=== PATIENT | female | born 1985 | race American Indian/Alaskan Native ===

== ENCOUNTER 2016-09-08 22:51 | Emergency (ER) | payer SELFPAY ==
[2016-09-09 00:08] LABS: Basophils % (Auto) 0.4 % (0.0-1.8); Eosinophils % (Auto) 2.7 % (0.0-4.3); Hematocrit 38.3 % (30.3-42.9); Hemoglobin 12.3 gm/dl (10.1-14.3); Mean Corpuscular HGB Conc 32 % (30-34); Mean Corpuscular Hemoglobin 28 pg (28-32); Mean Corpuscular Volume 88 fl (79-97); Platelet Count 244 K/mm3 (140-440); Red Blood Count 4.38 M/mm3 (3.65-5.03); Red Cell Distribution Width 14.3 % (13.2-15.2); White Blood Count 9.2 K/mm3 (4.5-11.0)
[2016-09-09 00:36] LABS: Anion Gap 20 mmol/L; Blood Urea Nitrogen 14 mg/dL (7-17); Calcium 9.4 mg/dL (8.4-10.2); Carbon Dioxide 24 mmol/L (22-30); Chloride 102.1 mmol/L (98-107); Glucose 101 mg/dL (65-100); Potassium 3.9 mmol/L (3.6-5.0); Sodium 142 mmol/L (137-145)
[2016-09-09 02:56] LABS: Bilirubin,Urine NEG (Negative); Blood,Urine NEG (Negative); Ketones,Urine NEG (Negative); Leukocyte Esterase,Urine NEG (Negative); Mucus,Urine FEW /HPF; Nitrite,Urine NEG (Negative); Protein,Urine <15 mg/dL mg/dL (Negative)
--- NOTE | 2016-09-09 04:07 | Emergency Department Report ---
HPI - General Chief Complaint: Chest Pain Time Seen by Provider: 09/09/16 02:11 - HPI HPI: This is a 31-year-old Afro[place] female who presents to the emergency department from her sister's home, dropped off by her sister, with the complaint of some atypical headache or head sensation as well as some chest discomfort. The patient had some sudden pressure in her head about 1 hour prior to presentation that was mostly on the top and left side that felt like it was "lifting my head up." Then she started having a burning sensation and some numbness in this area as well. She had her sister passenger coach driver in to be seen and while they were driving in the patient developed some midsternal chest discomfort. She said that she was having a lot of gas and burping and after she was able to get rid of the gas chest discomfort went away. The patient's head pressure/sensation also resolved prior to me seeing the patient in the emergency department. She did not take anything for her symptoms prior to presentation. She has a past medical history of acid reflux. She is currently from [facility] and therefore has a primary care physician there. She had one previous episode of this atypical head pressure/sensation and it occurred last and it resolved on its own. She is also had previous episodes of some chest discomfort and it was either acid reflux or anxiety when it occurred. ED Past Medical Hx - Past Medical History Previous Medical History?: No - Social History Smoking Status: Former Smoker - Medications Home Medications: Home Medications Medication Instructions Recorded Confirmed Last Taken Type No Known Home Medications [No 09/09/16 09/09/16 Unknown History Reported Home Medications] ED Review of Systems ROS: Stated complaint: HEAD PRESSURE/NUMBNESS/CHEST PAIN Other details as noted in HPI Comment: All other systems reviewed and negative Constitutional: denies: chills, fever Eyes: denies: eye pain, eye discharge, vision change ENT: denies: ear pain, throat pain Respiratory: denies: cough, shortness of breath, wheezing Cardiovascular: chest pain. denies: palpitations Gastrointestinal: denies: abdominal pain, nausea, diarrhea Genitourinary: denies: urgency, dysuria, discharge Musculoskeletal: denies: back pain, joint swelling, arthralgia Skin: denies: rash, lesions Neurological: headache. denies: weakness, numbness, paresthesias Physical Exam - Physical Exam Vital Signs: Vital Signs 09/08/16 09/09/16 09/09/16 23:20 01:50 01:58 Temperature 98.6 F Pulse Rate 87 Respiratory 20 15 Rate Blood Pressure 133/79 105/56 O2 Sat by Pulse 100 99 Oximetry 09/09/16 09/09/16 09/09/16 02:00 02:16 02:30 Temperature Pulse Rate 64 69 80 Respiratory 19 14 13 Rate Blood Pressure 111/58 111/58 111/58 O2 Sat by Pulse 100 99 99 Oximetry 09/09/16 09/09/16 09/09/16 02:46 03:00 03:16 Temperature Pulse Rate 68 73 60 Respiratory 19 19 16 Rate Blood Pressure 111/58 116/74 116/74 O2 Sat by Pulse 99 97 98 Oximetry 09/09/16 09/09/16 03:30 03:46 Temperature Pulse Rate 59 L 61 Respiratory 17 16 Rate Blood Pressure 116/74 116/74 O2 Sat by Pulse 97 98 Oximetry Physical Exam: GENERAL: The patient is well-developed well-nourished. HEENT: Normocephalic. Atraumatic. Extraocular motions are intact. Patient has moist mucous membranes. Pupils equal reactive to light bilaterally. No facial asymmetry. No nystagmus. NECK: Supple. Trachea is midline. CHEST/LUNGS: Clear to auscultation. There is no respiratory distress noted. HEART/CARDIOVASCULAR: Regular. There is no tachycardia. There is no gallop rub or murmur. ABDOMEN: Abdomen is soft, nontender. Patient has normal bowel sounds. There is no abdominal distention. SKIN: There is no rash. There is no edema. There is no diaphoresis. NEURO: The patient is awake, alert, and oriented. The patient is cooperative. The patient has no focal neurologic deficits. The patient has normal speech. Cranial nerves II through XII grossly intact. No pronator drift. No dysmetria. MUSCULOSKELETAL: There is no tenderness or deformity. There is no limitation range of motion. There is no evidence of acute injury. Muscle strength 5 out of 5 upper and lower extremities bilaterally. ED Course Vital Signs 09/08/16 09/09/16 09/09/16 23:20 01:50 01:58 Temperature 98.6 F Pulse Rate 87 Respiratory 20 15 Rate Blood Pressure 133/79 105/56 O2 Sat by Pulse 100 99 Oximetry 09/09/16 09/09/16 09/09/16 02:00 02:16 02:30 Temperature Pulse Rate 64 69 80 Respiratory 19 14 13 Rate Blood Pressure 111/58 111/58 111/58 O2 Sat by Pulse 100 99 99 Oximetry 09/09/16 09/09/16 09/09/16 02:46 03:00 03:16 Temperature Pulse Rate 68 73 60 Respiratory 19 19 16 Rate Blood Pressure 111/58 116/74 116/74 O2 Sat by Pulse 99 97 98 Oximetry 09/09/16 09/09/16 03:30 03:46 Temperature Pulse Rate 59 L 61 Respiratory 17 16 Rate Blood Pressure 116/74 116/74 O2 Sat by Pulse 97 98 Oximetry ED Medical Decision Making - Lab Data Result diagrams: 09/08/16 23:39 09/08/16 23:39 - EKG Data -: EKG Interpreted by Me EKG shows normal: sinus rhythm, axis, intervals, QRS complexes (Q waves to the septal leads), ST-T waves Rate: normal - EKG Data When compared to previous EKG there are: previous EKG unavailable Interpretation: other (Q waves to the septal leads) - Medical Decision Making 31-year-old female presents the emergency department with 2 issues. One the patient had some atypical sensation in her head that she describes as some type of pressure pulling up from her head, followed by some burning sensation, followed by some numbness and then resolution without any intervention. The patient also had some chest pain during the drive in to the emergency department. She was evaluated with physical exam, labs and EKG. EKG shows some Q waves to the septal leads but otherwise there is no signs of ST elevation VT or any dysrhythmia. Physical exam the patient has no focal, motor or sensory deficits in her cranial nerves are intact. There is no pronator drift or dysmetria. Labs are unremarkable including negative troponins 2. By the time I see the patient in the emergency department she is asymptomatic and back at baseline. She admits that she has had a recent chest pain workup and was diagnosed with it being anxiety. On top of that, patient says she has a history of GERD and was feeling much better after she did some burping so this could also be a source of her previous discomfort. The description she gives for her head is very atypical but really does not appear to be consistent with any type of acute headache, CVA or any other neurological issue. The patient does display some anxiety and wanting to know exactly what is going on. I do not feel that there is anything dangerous going on at this time but the patient was offered a CT of the head without contrast to further evaluate her previous symptoms. However after a long discussion together we decided that it was best not to expose her to any unnecessary radiation as she is currently asymptomatic. However she agrees that if her head pressure/sensation returns, she develops any pain, any neurological deficits, then she will return to the emergency department for a CT scan of the head and further evaluation. The same is true for her chest pain. If it returns or if there is any distress she will return to the emergency department for further evaluation and treatment. She understands and agrees to the plans. The patient is a KARIN score of 0. She is low on the hard score criteria. She is low on the well's score and negative for pulmonary embolism rule out criteria. - Differential Diagnosis VT, costochondritis, GERD, tension headache, migraine Critical Care Time: No Critical care attestation.: If time is entered above; I have spent that time in minutes in the direct care of this critically ill patient, excluding procedure time. ED Disposition Clinical Impression: Pressure in head Chest pain Qualifiers: Chest pain type: unspecified Qualified Code(s): R07.9 - Chest pain, unspecified Disposition: DC-01 TO HOME OR SELFCARE Is pt being admited?: No Condition: Stable Instructions: Chest Pain (ED), Acute Headache (ED) Additional Instructions: You were seen today for the pressure/burning sensation/numbness to the left side of her head, as well as some transient chest pain. I have tried to provide some information regarding your symptoms but I am aware that you did not feel the head sensation was a headache. As we discussed, if you develop any pain in the head, slurred speech, blurry vision, problems with movement or sensation, any neurological deficits or any strokelike symptoms, he should return to the emergency department immediately for a CT scan of the head. He should also return to the emergency department with any chest pain, shortness of breath or any acute distress. Otherwise, please follow-up with your primary care physician when you return to [place]. Referrals: PRIMARY CAREMD [Primary Care Provider] - [facility] Time of Disposition: 04:09
[2016-09-09 04:20] VITALS: BP 118/61
== END 2016-09-09 04:10 | disposition home or self-care (01) ==
LOC: ED 22:51
DX: R51 Headache (principal); R07.9 Chest pain, unspecified; K21.9 Gastro-esophageal reflux disease without esophagitis; Z87.891 Personal history of nicotine dependence
CPT/HCPCS: 36415; 80048; 81001; 81025; 84484; 85025; 93005; 93010